=== PATIENT | female | born 1940 | race Caucasian/White ===

== ENCOUNTER 2021-06-17 10:44 | Outpatient (CLI) | payer MEDICARE, OTHER, SELFPAY ==
[2021-06-17 12:22] LABS: Absolute Lymphocyte Count 1.21 X10^3/uL (0.83-4.51); Absolute Neutrophil Count 4.5 X10^3/uL (2.0-7.7); Basophil# 0.06 X10^3/uL; Basophil% 0.9 % (0-1); Eosinophil# 0.19 X10^3/uL; Eosinophils% 2.9 % (0-5); Hematocrit 47.1 % (37-47); Lymphocyte # 1.21 X10^3/ul (0.83-4.51); Lymphocyte % 18.3 % (19-41); Mean Corp Hgb Conc 31.8 g/dL (32-36); Mean Corpuscular Hgb 28.8 pg (27.0-32.0); Mean Corpuscular Volume 90.4 fL (81-99); Mean Platelet Vol. 9.6 fl (6.2-12.0); Monocyte# 0.65 X10^3/uL; Monocyte% 9.8 % (0-10); NRBC Flagged by Analyzer 0 % (0-5); Neutrophil % 67.9 % (47-70); Platelet Count 356 K/mm3 (150-450); RBC Distribution Width CV 14.2 % (11.6-14.6); RBC Distribution Width SD 47.7 fl (35.1-43.9); Red Blood Count 5.21 M/mm3 (4.2-5.4); White Blood Count 6.6 K/mm3 (4.4-11.0)
[2021-06-17 12:52] LABS: ALB/GLOB Ratio 0.8 RATIO (0.9-2.4); AST(SGOT) 18 U/L (15-37); Alanine Aminotransfer ALT/SGPT 24 U/L (13-56); Albumin, Serum 3.5 g/dL (3.2-5.0); Alkaline Phosphatase 91 U/L (45-117); Anion Gap 4 (5-15); BUN 12 mg/dL (7-18); BUN/Creat Ratio 14.1 RATIO (10-20); Calcium,Total 9.3 mg/dL (8.5-10.1); Chloride 105 mmol/L (98-107); Creatinine, Serum 0.85 mg/dL (0.55-1.02); EST Glomerular Filtration Rate 68 mL/min (>60); Est Glom Filt Rate - Afr Amer 83 mL/min (>60); Globulin 4.4 g/dL (2.2-4.2); Glucose 104 mg/dL (74-106); Potassium 4.3 mmol/L (3.5-5.1); Protein, Total 7.9 g/dL (6.4-8.2); Sodium Level 138 mmol/L (136-145); Thyroid Stim Hormone (TSH) 6.22 uIU/mL (0.358-3.74)
[2021-06-17 15:43] LABS: T4 Free Direct 0.79 ng/dL (0.76-1.46)
== END 2021-06-17 23:59 | disposition home or self-care (01) ==
PROVIDERS: PCP Internal Medicine; Referring Provider Internal Medicine; Visit Provider Internal Medicine
DX: Z01.818 Encounter for other preprocedural examination (principal); R79.89 Other specified abnormal findings of blood chemistry; E89.0 Postprocedural hypothyroidism
CPT/HCPCS: 36415; 80053; 84439; 84443; 85025

== ENCOUNTER 2021-07-01 07:44 | Outpatient (CLI) | payer MEDICARE, OTHER, SELFPAY ==
--- NOTE | 2021-07-01 08:03 | EKG12_ITS ---
Test Reason : PRE OP Blood Pressure : / mmHG Vent. Rate : 066 BPM Atrial Rate : 066 BPM P-R Int : 140 ms QRS Dur : 080 ms QT Int : 390 ms P-R-T Axes : -66 032 056 degrees QTc Int : 408 ms Unusual P axis, possible ectopic atrial rhythm Abnormal ECG Confirmed by DMITRIY ANDERS, LESLIE ([id number]), writer editor REINALDO PACKER ([id number]) on 07/02/2021 11:40:18 AM Referred By: Caroline Coe Confirmed By:LESLIE IZAGUIRRE MD
--- NOTE | 2021-07-01 08:06 | CT_ITS ---
STUDY: CT LEFT LOWER EXTREMITY REASON FOR EXAM: Osteoarthritis, surgical planning. TECHNIQUE: Transaxial CT imaging of the lower extremity was performed. Coronal and sagittal images were reformatted. Individualized dose optimization techniques were used for this CT. COMPARISON: Radiographs 07/28/2015. FINDINGS: Knee: There is joint space narrowing and subchondral eburnation of the medial femorotibial compartment (coronal reconstruction 43). There are marginal osteophytes and joint space narrowing of the mesial aspect of the lateral femorotibial compartment (coronal reconstruction 41). There are marginal osteophytes and joint space narrowing of the lateral aspect of the patella femoral compartment (axial image 307). There is a small left knee joint effusion. Hip: There are small marginal osteophytes of the acetabulum and mild joint space narrowing of the lateral aspect of the hip (coronal reconstruction 46). Ankle: There is joint space narrowing of the tibiotalar articulation (sagittal reconstruction 26). There is mild joint space narrowing of the posterior subtalar articulation with subchondral eburnation of the calcaneus (sagittal reconstruction 29). Normal talonavicular and calcaneocuboid articulations. CT/Extremity Lower without Contra IMPRESSION: Left knee osteoarthritis. Electronically Signed: Elvin Ayala MD at 14:58 EDT ,
== END 2021-07-01 23:59 | disposition home or self-care (01) ==
LOC: CT 07:46
PROVIDERS: PCP Internal Medicine; Referring Provider Internal Medicine; Visit Provider Internal Medicine
DX: M17.12 Unilateral primary osteoarthritis, left knee (principal); M25.562 Pain in left knee; G89.29 Other chronic pain
CPT/HCPCS: 73700; 93005

== ENCOUNTER 2021-07-14 05:21 | Day surgery (SDC) | payer MEDICARE, OTHER, SELFPAY ==
[2021-07-01 09:05] LABS: Magnesium 1.9 mg/dL (1.6-2.6)
[2021-07-01 09:17] LABS: Hemoglobin A1c 5.6 % (3.8-5.6)
[2021-07-14] VITALS (10 sets, daily range): BP systolic 128–142; BP diastolic 43–89; PULSE 73–81; RESP 16; TEMP 36.2–36.7; O2SAT 91–100; BMI 31.7
[2021-07-14] MEDS: Gabapentin 600 MG Tablet PO (06:15)
[2021-07-14] MEDS: Acetaminophen 500 MG Tablet 1000 MG PO (06:15)
[2021-07-14] MEDS: Lactated Ringers 1,000 ML 15 ML IV (06:16)
[2021-07-14 07:00] LABS: Bedside Glucose 119 mg/dL (74-106)
[2021-07-14] MEDS: Lactated Ringers 1,000 ML 999 ML IV (07:00)
[2021-07-14] MEDS: Cefazolin 2 GM in 0.9% Normal Saline 100 ML IV (07:30)
--- NOTE | 2021-07-14 07:30 | KNEE_PTH ---
PATIENT: LEVON ELISE [place] [facility] [id number] AGE/SX: 81/F ROOM: RE07/14/[address]: Dr. Rusty Billingsley DO : [id number] BED: DIS: 07/14/2021 SPEC #: [id number] RECD: 07/14/21 10:47 STATUS: JULIETA REQ #: [id number] JENNYFER: 07/14/21 07:[address]: Rusty Billingsley DEPT: SURGICAL PATHOLOGY RECD BY: Zuleika Zamudio ENTERED: 07/14/21 11:40 SP TYPE: TOTAL KNEE OTHR DR: Dr. Caroline Coe MD Tissues: Knee, NOS Procedures: Decalcification bone/plaque Surgery Specimen Level IV HEADER OPERATION: ERAS, total knee replacement robotic arm assist PRE-OP DIAGNOSIS: Primary osteoarthritis TISSUE SUBMITTED: Left knee bone MICROSCOPIC DIAGNOSIS Bone and tissue of left knee, total knee resection: Severe degenerative joint disease. Mild synovial hyperplasia. AM:ezra 07/17/2021 MICROSCOPIC DESCRIPTION Slides are reviewed. GROSS DESCRIPTION Received is one container designated bone and soft tissue left knee. The specimen consists of multiple fragments of santiago-yellow bone measuring in aggregate 12 x 10 x 3 cm. Also in the specimen container are multiple fragments of yellow-white soft tissue measuring in aggregate 8 x 7 x 2 cm. A number of bony fragments contain articular surfaces consistent with tibial plateau and femoral condyle and displaying prominent osteophyte formation, eburnation, and bone erosion. Switch Repairer sections are submitted in two cassettes as follows: 1 - soft tissue, 2 - bone after decalcification. / SJ:ezra 07/14/2021 TC:5 CPT: 86279, 18528
[2021-07-14] MEDS: TXA 1000mg in NS100 100ml (IVPB at Incision) 660 MG IV (07:40)
--- NOTE | 2021-07-14 07:43 | RAD_ITS ---
STUDY: X-RAY - LEFT KNEE REASON FOR EXAM: Female, 81 years old. Postoperative evaluation after total knee arthroplasty. TECHNIQUE: 2 view(s) of the knee. COMPARISON: 05/28/2015. FINDINGS: There is a 3 component total knee arthroplasty in anatomic position. There are expected post-operative findings. There are no complications. No other significant abnormality is identified. RAD/Knee 1 or 2 Views IMPRESSION: Total knee arthroplasty in anatomic alignment without complications. Electronically Signed: Alberto Berry MD at 12:27 EDT ,
[2021-07-14] MEDS: TXA 1000mg in NS100 100ml (IVPB at Closure) 660 MG IV (09:21)
--- NOTE | 2021-07-14 09:32 | PCM.OPRPT ---
Report of Operation Date of Procedure: 07/14/21 Pre-Operative Diagnosis: OA left knee Post-Operative Diagnosis: same Surgery/Procedure Performed:: Left TKR Description of Surgical Findings:: Report of Operation Date of Procedure: 07/14/2021 Preoperative Diagnosis: [ left ] knee primary osteoarthritis Postoperative Diagnosis: [left ] knee primary osteoarthritis Operation: Robotic Assisted Knee Total Arthroplasty, [left ] knee Surgeon: Dr Rusty Billingsley DO Programs Assistant: Alberto Mcneal PA-C Anesthesia: general Anesthesiologist: Babatunde Beard M.D. Findings: Stable knee with good patella tracking Specimen(s): Bony cuts Complications: No intraoperative complications Estimated Blood Loss: 20 cc IV Fluids: 1000 cc crystalloid Implants Used: 1. Friant Triathlon size 5 cemented CR femur 2. Friant Triathlon cemented size 4 tibia 3. size 32 cemented patella 4. 10 mm CS polyethylene Brief History Operative Indications: [ (81 y\o female) ] with history of [ left ] knee osteoarthrosis with radiographic findings with loss of joint space, osteophyte formation and subchondral sclerosis. Failed conservative measures as mentioned in the H&P. Discussion of total knee arthroplasty as well as risk and benefits were discussed with the patient including but not limited to blood loss, DVTs, PEs, neurovascular damage, general risk of anesthesia including loss of life, and stiffness or instability were also discussed with the patient. Patient demonstrated understanding and was able to sign informed consent. Procedure: On the date of procedure, patient's [left ] lower extremity was marked in the preoperative area. The patient was then taken back to the operating room where that patient was placed on the table in the supine position. All bony prominences were identified and well-padded. Anesthesia assumed control of the C-spine and airway throughout the remainder of the procedure. A tourniquet was placed on the [left ] upper thigh and the leg was prepped in a sterile fashion. The surgeon then scrubbed at this time. Upon reentering the room, the [left ] lower extremity was draped in a standard orthopedic fashion. A timeout was then called and everyone agreed upon the side, the site, the procedure to be performed, patient's identity and antibiotics given. Esmarch bandage was used to exsanguinate the extremity and the tourniquet was placed up to 250 mmHg with the knee in flexion. A midline skin incision was made and a sharp dissection was taken down through skin, subcutaneous tissue and fat. The standard medial parapatellar incision was made and the patella was subluxed laterally. An appropriate deep MCL release was done and the fat pad was resected. Our attention was then directed to the patella. The patella was everted and a flat resection was made. The knee was then flexed up and 2 femoral pins were placed inside the incision and 2 tibial pins were placed outside the incision in the medial tibia bicortically. Once this was completed, the 2 checkpoints in the femur and tibia were placed. Knee was then flexed up and the bony landmarks were registered. Once the was completed, the knee taken through range of motion and manually stressed allowing us to plan for an appropriate tibial cut. The robotic arm was brought into the field sterilely and checkpoint and saw were registered. Based on the patient's deformity, the tibial cut was made in [ 2 degrees varus ]. At this time, the tensioner was then placed in the joint and ligament tension was checked at 90 degrees and full extension. Based on the patient's ligamentous tension, appropriate adjustments were made to the operative plan and ligament releases were done. Once we were happy with our operative plan with balanced flexion and extension gaps, our attention was directed to the femur. The robot was brought into the field sterilely and registered. Posterior condylar cuts, anterior chamfer cuts and anterior cuts were appropriately made for a [size 5 ] femur. When these were completed, the saws were switched out in the distal femoral and posterior chamfer cuts were made. Protecting the soft tissue throughout this time. A [ size 4 ] base plate was selected. The knee was flexed to 90 degrees and soft tissues and posterior osteophytes were removed from the joint. 40 cc of the periarticular injection was injected into the posterior medial corner of the joint. The appropriate trials were then placed on the femur and tibia. A trial polyethylene was trialed to ensure proper balancing and stability of the knee. The appropriate tibial internal rotation was then marked with a bovie. Our attention was then directed to the patella. The lug holes were drilled and the patella trial was placed. Patellar tracking was checked and deemed appropriate. Once we were happy, lug holes were drilled for the femur and trial components were removed. The tibia was subluxed and pinned into place and the keel was punched and drilled appropriately. Final components were verified and opened. The wound was copiously irrigated with normal saline and dried thoroughly. Cement was mixed under 3rd generation techniaue and applied in sequence to the tibia, the femur and the patella. The components were impacted into place with the tibia, femur and finally the patella. The trial poly component was placed and the knee was placed in full extension and held while the cement hardened. Excess cement was remove with elevators and hemostats. The tracking, alignment and balance were verified and a [10 mm CS ] polyethylene component was placed. Once the final components were placed an Irrisept lavage was performed and the wound was copiously irrigated with normal saline solution and the periarticular injection was given. the wound was closed in a layer-duron fashion using #1 vicryl interrupted sutures for the arthrotomy, 2-0 interrupted vicryl suture for the subcuticular layer and tank for final skin closure. A sterile compressive dressing was then placed. The patient was then awakened from anesthesia, transferred to [facility] and transferred to the PACU for recovery. My physician geological survey field assistant was a vital part of this case. He was important in appropriate retraction during the case, and protection of soft tissues during bony cuts. His intimate knowledge of the case and my steps aided in safe and expedient completion of the procedure as well as appropriate position of the leg during the case. He was also vital in assisting with closure under my direct supervision. Due to the complexity of this case, robotic arm was used to assist in the surgery to improve accuracy and clinical outcomes. Post-op Plan: DVT ppx; ASA 81 mg BID, thigh high compression stockings Follow up: in office in 2 weeks for wound check PT: to start POD #0 at hospital, outpatient PT should be arranged. Preoperative antibiotic: Ancef 2 grams IV Rusty Billingsley DO Surgeon: Rusty Billingsley hand deicer element winder: Alberto Mcneal Type of Anesthesia: General Anesthesiologist: Babatunde Beard Estimated Blood Loss (mL): 20 cc Fluids Replaced: 1000 cc crystalloid Admit VTE Documentation VTE Present on Admission: No VTE Mechan Device Prophylaxis: SCD's and Thigh High FAB Hose VTE Pharm Prophylaxis ordered?: Yes
[2021-07-14] MEDS: oxyCODONE 5 MG Tablet PO (12:31)
== END 2021-07-14 13:56 | disposition home or self-care (01) ==
LOC: SDC 05:21 → AC 05:22
PROVIDERS: Anesthesiology; PCP Internal Medicine; Referring Provider Orthopaedic Surgery; Visit Provider Orthopaedic Surgery
PROC: 0SRD0JZ Replacement of Left Knee Joint with Synthetic Substitute, Open Approach (ICD-10-PCS; CPT 27447; principal; 2021-07-14 07:00)
DX: M17.12 Unilateral primary osteoarthritis, left knee (principal); M06.9 Rheumatoid arthritis, unspecified; E07.9 Disorder of thyroid, unspecified; I10 Essential (primary) hypertension; Z79.82 Long term (current) use of aspirin; Z79.899 Other long term (current) drug therapy
CPT/HCPCS: 27447; S2900; 01402; 64447; 36415; 73560; 82962; 83036; 83735; 87081; 87426; 88305; 88311; 97162; C1776; C9803; J7120; J2405

== ENCOUNTER 2021-09-18 10:00 | Outpatient (RCR) | payer MEDICARE, OTHER, SELFPAY ==
--- NOTE | 2021-08-14 13:39 | HP.PTEVAL ---
Patient's Visit Information LEVON ELISE is a 81 year old F referred to Physical Therapy by Alberto Mcneal PA-C with a diagnosis of L TKA. Date of Evaluation: 08/14/21 Physical Therapist: Lorenzo Cantu, PT, ATC - Visit Plan Frequency: 2-3x /Week Duration: 4-6 Weeks Plan: L knee stretching and strengthening, balance and proprio, core strengthening, nustep, and HEP - Subjective DOS: 07/14/21. Pt had a L TKA performed at that time. Pt reports she had a lot of pain for many years. Pt reports she has had home PT for the past few weeks and has really been progressing well. Pt notes she is really glad she had the surgery at this time. Pt notes she has no sleep difficulty with pain meds. Pt notes she has a lot of stairs at home which she is able to negotiate one step at a time. Pt is currently retired. Pt reports she sprained her R ankle about 2 weeks ago. No tingling or numbness in L LE. Pt reports she used a walker for about one week, but has transitioned to a quad cane at this time, and has been using nothing to ambulate while in the home. Pt reports she likes to go on walks and gardening which she hopes to get back to doing soon. 2/10 pain at rest, 6/10 pain at worst. - Pain L TKA Pain Intensity (Out of 10): 2 Pain Intensity Range: 6 - Objective Neuro: B LE sensation is WNL to light touch. Girth at joint line: R knee 40 cm, L knee 44 cm. ROM: L knee 0-15-97; R knee 0-130. MMT: R knee flex= 23, ext= 27; L knee flex= 22, ext= 26 #F. TU seconds - Balance/Special Test Scores Lower Extremity Functional Score: 44 - Goals Goal 1:: Decrease L knee pain x 50% to aid with sleep Goal Time Frame: 4-6 Weeks Goal 2:: Increase L knee ROM x 20 degrees to aid with restoring pt's ability to perform IADL's Goal Time Frame: 4-6 Weeks Goal 3:: Decrease TUG score x 2-3 seconds to aid with safe ambulation Goal Time Frame: 4-6 Weeks Goal 4:: I with HEP Goal Time Frame: 4-6 Weeks - Rehabilitation Potential Physical Therapy Diagnosis: L knee pain, swelling, and lack of ROM secondary to L TKA Rehabilitation Potential: Good - Anticipated Interventions Patient/Client Instruction: Educate patient on: Condition, Plan of Care For the Purpose of:: To improve self management Therapeutic Exercise to Include: Strength training, Endurance training, Balance training, Gait and locomotor training, Passive ROM, Active ROM, Dynamic Lumbar Stabilization For the Purpose of:: To improve self management Cryotherapy (ice pack, ice massage): Yes For the Purpose of:: To decrease pain Thank you for the opportunity to evaluate your patient. For Medicare and Medicare HMO plans, please review the plan of care and approve it. It will need to be FAXED BACK to us at [phone] for Medicare purposes. For Medicare only, by signing this I certify the plan of care. Please let me know if there are questions or concerns regarding this plan of care. Physician Signature: Date:
--- NOTE | 2021-09-18 10:29 | HP.PTDCSUM ---
It has been my pleasure to treat LEVON ELISE referred by Alberto Mcneal PA-C, with the diagnosis of L TKA for a total of 8 visit(s). Discharge Date: Please see the following information for a summary of their discharge status. Subjective: Pt reports she is ready for discharge today L TKA Pain Intensity (Out of 10): 0 % Improvement: 95 Objective/Function: R knee pain ranges from 0-4/10. R knee ROM: 0-4-123. R knee MMT: flex= 23, ext= 26 #F. Tug': 7.25. Pt is I with HEP. Rx goals achieved Goal 1:: Decrease L knee pain x 50% to aid with sleep Goal Progress: Goal Met Goal 2:: Increase L knee ROM x 20 degrees to aid with restoring pt's ability to perform IADL's Goal Progress: Goal Met Goal 3:: Decrease TUG score x 2-3 seconds to aid with safe ambulation Goal Progress: Goal Met Goal 4:: I with HEP Goal Progress: Goal Met Plan: Discharge If there are questions or concerns regarding this patient's physical therapy, please feel free to call me at [phone]. Thank you for the referral of this patient. Sincerely, Lorenzo Cantu, PT, ATC Balance/Gait/Functional tests - Balance/Special Test Scores Lower Extremity Functional Score: 65
== END 2021-09-18 10:35 | disposition home or self-care (01) ==
LOC: PT 10:00
PROVIDERS: PCP Internal Medicine; Referring Provider Physician Assistant; Visit Provider Physician Assistant
DX: Z96.652 Presence of left artificial knee joint (principal)
CPT/HCPCS: 97110; 97140; 97161; 97164

== ENCOUNTER → 2021-12-02 | Outpatient (CLI) | payer MEDICARE, OTHER, SELFPAY ==
[2021-12-02 12:18] LABS: Absolute Lymphocyte Count 1.54 X10^3/uL (0.83-4.51); Absolute Neutrophil Count 5.6 X10^3/uL (2.0-7.7); Basophil# 0.08 X10^3/uL; Eosinophil# 0.14 X10^3/uL; Eosinophils% 1.7 % (0-5); Hematocrit 44.6 % (37-47); Hemoglobin 14.6 g/dL (12.0-15.0); Lymphocyte # 1.54 X10^3/ul (0.83-4.51); Lymphocyte % 19.1 % (19-41); Mean Corp Hgb Conc 32.7 g/dL (32-36); Mean Corpuscular Hgb 29.7 pg (27.0-32.0); Mean Corpuscular Volume 90.7 fL (81-99); Mean Platelet Vol. 9.1 fl (6.2-12.0); Monocyte# 0.73 X10^3/uL; Monocyte% 9.1 % (0-10); NRBC Flagged by Analyzer 0 % (0-5); Neutrophil # 5.55 X10^3/uL (2.7-7.7); Neutrophil % 68.9 % (47-70); Platelet Count 355 K/mm3 (150-450); RBC Distribution Width CV 14.4 % (11.6-14.6); RBC Distribution Width SD 48.7 fl (35.1-43.9); Red Blood Count 4.92 M/mm3 (4.2-5.4); White Blood Count 8.1 K/mm3 (4.4-11.0)
[2021-12-02 12:47] LABS: ALB/GLOB Ratio 0.8 RATIO (0.9-2.4); AST(SGOT) 14 U/L (15-37); Alanine Aminotransfer ALT/SGPT 19 U/L (13-56); Albumin, Serum 3.5 g/dL (3.2-5.0); Alkaline Phosphatase 86 U/L (45-117); Anion Gap 7 (5-15); BUN 12 mg/dL (7-18); BUN/Creat Ratio 17.5 RATIO (10-20); Calcium,Total 9.4 mg/dL (8.5-10.1); Chloride 107 mmol/L (98-107); Cholesterol 245 mg/dL (200); Creatinine, Serum 0.69 mg/dL (0.55-1.02); EST Glomerular Filtration Rate 88 mL/min (>60); Est Glom Filt Rate - Afr Amer 106 mL/min (>60); Globulin 4.3 g/dL (2.2-4.2); Glucose 86 mg/dL (74-106); High Density Lipoprotein 50 mg/dL; Protein, Total 7.8 g/dL (6.4-8.2); Sodium Level 140 mmol/L (136-145); Thyroid Stim Hormone (TSH) 5.65 uIU/mL (0.358-3.74); Triglycerides 227 mg/dL; Very Low Density Lipoprotein 45 mg/dL (5-40)
[2021-12-03 08:31] LABS: Thyroid Peroxidase AB < 8 IU/mL (0-34)
== END | disposition home or self-care (01) ==
LOC: BIMLAB 11:09
PROVIDERS: PCP Internal Medicine; Referring Provider Internal Medicine; Visit Provider Internal Medicine
DX: I10 Essential (primary) hypertension (principal); E03.8 Other specified hypothyroidism; R79.89 Other specified abnormal findings of blood chemistry
CPT/HCPCS: 36415; 80053; 80061; 84439; 84443; 85025; 86376

== ENCOUNTER → 2022-12-02 | Outpatient (CLI) | payer MEDICARE, OTHER, SELFPAY ==
[2022-12-02 12:25] LABS: Absolute Lymphocyte Count 1.18 X10^3/uL (0.83-4.51); Absolute Neutrophil Count 5.2 X10^3/uL (2.0-7.7); Basophil# 0.07 X10^3/uL; Eosinophils% 2.8 % (0-5); Hematocrit 45.1 % (37-47); Hemoglobin 14.7 g/dL (12.0-15.0); Lymphocyte # 1.18 X10^3/ul (0.83-4.51); Lymphocyte % 16.4 % (19-41); Mean Corp Hgb Conc 32.6 g/dL (32-36); Mean Corpuscular Hgb 29.3 pg (27.0-32.0); Mean Platelet Vol. 9.5 fl (6.2-12.0); Monocyte# 0.53 X10^3/uL; Monocyte% 7.4 % (0-10); NRBC Flagged by Analyzer 0 % (0-5); Neutrophil # 5.22 X10^3/uL (2.7-7.7); Neutrophil % 72.3 % (47-70); Platelet Count 292 K/mm3 (150-450); RBC Distribution Width SD 46.3 fl (35.1-43.9); Red Blood Count 5.01 M/mm3 (4.2-5.4); White Blood Count 7.2 K/mm3 (4.4-11.0)
[2022-12-02 13:02] LABS: ALB/GLOB Ratio 0.8 RATIO (0.9-2.4); AST(SGOT) 15 U/L (15-37); Alanine Aminotransfer ALT/SGPT 17 U/L (13-56); Albumin, Serum 3.3 g/dL (3.2-5.0); Alkaline Phosphatase 74 U/L (45-117); Anion Gap 7 (5-15); BUN 9 mg/dL (7-18); BUN/Creat Ratio 10.9 RATIO (10-20); Calcium,Total 8.6 mg/dL (8.5-10.1); Chloride 107 mmol/L (98-107); Cholesterol 256 mg/dL (200); Creatinine, Serum 0.83 mg/dL (0.55-1.02); EST Glomerular Filtration Rate 70 mL/min (>60); Est Glom Filt Rate - Afr Amer 85 mL/min (>60); Glucose 108 mg/dL (74-106); High Density Lipoprotein 51 mg/dL; Potassium 3.8 mmol/L (3.5-5.1); Protein, Total 7.3 g/dL (6.4-8.2); Sodium Level 139 mmol/L (136-145); T4 Free Direct 0.77 ng/dL (0.76-1.46); Thyroid Stim Hormone (TSH) 6.69 uIU/mL (0.358-3.74); Triglycerides 173 mg/dL; Very Low Density Lipoprotein 35 mg/dL (5-40)
== END | disposition home or self-care (01) ==
LOC: BIMLAB 10:17
PROVIDERS: PCP Internal Medicine; Visit Provider Internal Medicine
DX: I10 Essential (primary) hypertension (principal); E03.9 Hypothyroidism, unspecified
CPT/HCPCS: 36415; 80053; 80061; 84439; 84443; 85025

== ENCOUNTER → 2023-11-12 | Outpatient (CLI) | payer MEDICARE, OTHER, SELFPAY ==
--- NOTE | 2023-11-12 07:56 | CT_ITS ---
STUDY: CT RIGHTLOWER EXTREMITY WITHOUT CONTRAST REASON FOR EXAM: Female, 83 years old. KNEE PAIN RADIATION DOSAGE (If Supplied By Facility): CTDIvol = ( 18.76 ) mGy, DLP = ( 1149.41 ) mGycm TECHNIQUE: Thin section transaxial imaging of the ankle was obtained, with sagittal and coronal reconstructed images. Individualized dose optimization techniques were used for this CT. COMPARISON: X-ray of the right knee dated May 28, 2015 Hip findings: No visualized right intrapelvic regions: Significant rectosigmoid diverticulosis is present. Mild right hip axial narrowing. Normal femoral head and neck. Mild cortical spurring is present at the periphery of the right acetabular roof. No visualized fracture or loose bodies. No avascular necrosis is present. Normal visualized superior and inferior pubic rami and ischial tuberosities. Normal visualized soft tissue structures of the pelvis. Knee findings: There is severe narrowing of the medial compartment with [id number] contact and reactive sclerosis and subchondral cystic changes on both sides of the joint space. The lateral compartment is moderately narrowed. The patellofemoral compartment space is also moderately narrowed with a small suprapatellar joint effusion. Normal proximal tibiofibular articulation. The quadriceps tendon is grossly normal. The patellar tendon is grossly normal. Normal Hoffa''s fat pad. The soft tissues are unremarkable. Ankle findings: Normal visualized distal tibia and fibula. Normal tibiotalar articulation and talar dome. Normal talus, calcaneus, navicular and cuboid tarsal bones. Normal subtalar, talonavicular and calcaneocuboid articulations. Normal navicular-cuneiform, cuneiform tarsal bones and intercuneiform articulations. Normal tarsometatarsal articulations and visualized metatarsi. The soft tissue structures are grossly normal. CT/Extremity Lower without Contra IMPRESSION: 1. Severe medial compartment of the knee narrowing Electronically Signed: Michele Robins MD at 13:12 EDT ,
== END | disposition home or self-care (01) ==
LOC: CT 07:40
PROVIDERS: PCP Internal Medicine; Referring Provider Student in an Organized Health Care Education/Training Program; Visit Provider Student in an Organized Health Care Education/Training Program
DX: M17.31 Unilateral post-traumatic osteoarthritis, right knee (principal); M25.561 Pain in right knee
CPT/HCPCS: 73700

== ENCOUNTER → 2023-11-17 | Outpatient (CLI) | payer MEDICARE, OTHER, SELFPAY ==
[2023-11-17 18:30] LABS: Cholesterol 241 mg/dL (200); High Density Lipoprotein 52 mg/dL; T4 Free Direct 0.74 ng/dL (0.76-1.46); Triglycerides 187 mg/dL; Very Low Density Lipoprotein 37 mg/dL (5-40)
== END | disposition home or self-care (01) ==
LOC: BIMLAB 15:59
PROVIDERS: PCP Internal Medicine; Referring Provider Internal Medicine; Visit Provider Internal Medicine
DX: E03.8 Other specified hypothyroidism (principal)
CPT/HCPCS: 36415; 80061; 84439; 84443

== ENCOUNTER 2023-12-06 05:34 | Day surgery (SDC) | payer MEDICARE, OTHER, SELFPAY ==
--- NOTE | 2023-11-12 07:53 | EKG12_ITS ---
Test Reason : PRE OP Blood Pressure : / mmHG Vent. Rate : 072 BPM Atrial Rate : 072 BPM P-R Int : 176 ms QRS Dur : 078 ms QT Int : 380 ms P-R-T Axes : 000 -03 055 degrees QTc Int : 416 ms Sinus rhythm with Premature atrial complexes Otherwise normal ECG Confirmed by Rusty Charlton ([id number]), editorial project manager REINALDO PACKER ([id number]) on 11/15/2023 10:01:46 AM Referred By: German Marcelo Confirmed By:Rusty Charlton
[2023-11-12 08:12] LABS: Absolute Neutrophil Count 6.5 X10^3/uL (2.0-7.7); Basophil% 1.1 % (0-1); Eosinophil# 0.22 X10^3/uL; Eosinophils% 2.3 % (0-5); Hematocrit 46.8 % (37-47); Hemoglobin 15.2 g/dL (12.0-15.0); Lymphocyte % 21.1 % (19-41); Mean Corp Hgb Conc 32.5 g/dL (32-36); Mean Corpuscular Hgb 29.4 pg (27.0-32.0); Mean Corpuscular Volume 90.5 fL (81-99); Mean Platelet Vol. 9.1 fl (6.2-12.0); Monocyte# 0.66 X10^3/uL; NRBC Flagged by Analyzer 0 % (0-5); Neutrophil # 6.45 X10^3/uL (2.7-7.7); Neutrophil % 68.2 % (47-70); Platelet Count 308 K/mm3 (150-450); RBC Distribution Width CV 13.8 % (11.6-14.6); RBC Distribution Width SD 46.1 fl (35.1-43.9); Red Blood Count 5.17 M/mm3 (4.2-5.4); White Blood Count 9.5 K/mm3 (4.4-11.0)
[2023-11-12 08:52] LABS: Anion Gap 6 (5-15); BUN 10 mg/dL (7-18); BUN/Creat Ratio 12.2 RATIO (10-20); Chloride 107 mmol/L (98-107); Creatinine, Serum 0.82 mg/dL (0.55-1.02); EST Glomerular Filtration Rate 71 mL/min (>60); Est Glom Filt Rate - Afr Amer 86 mL/min (>60); Glucose 108 mg/dL (74-106); Potassium 3.5 mmol/L (3.5-5.1); Sodium Level 139 mmol/L (136-145)
[2023-11-12 08:55] LABS: Magnesium 2.3 mg/dL (1.6-2.6)
[2023-12-06] VITALS (10 sets, daily range): BP systolic 111–148; BP diastolic 41–78; PULSE 53–87; RESP 16–18; TEMP 36.1–36.3; O2SAT 92–100; BMI 30.9
[2023-12-06] MEDS: Magnesium 1 GM over 15 mins IV (06:13)
[2023-12-06] MEDS: Lactated Ringers 1,000 ML 999 ML IV ×2 (06:13→09:37)
[2023-12-06] MEDS: Gabapentin 600 MG Tablet PO (06:29)
[2023-12-06] MEDS: Acetaminophen 500 MG Tablet 1000 MG PO (06:29)
--- NOTE | 2023-12-06 06:36 | PRE.ANES_ITS ---
ASA Classification* ASA Classification ASA Classification: 2 Assessment & Plan Anesthesia* Anesthesia Assessment Anesthesia Assessment: Discussed sedation and/or anesthesia options, risks, benefits, and alternatives with patient/parents/legal guardian/POA. Questions invited. The patient/parents/legal guardian/POA seems to understand and agrees to proceed with anesthesia plan. Reviewed the physical assessment, medical history, allergy history and patient home medications list prior to surgery/procedure/anesthetic and documented any changes. Performed airway and anesthesia risk assessments. Anesthesia Type Anesthesia Type: Spinal (Block consented) Anesthesia Focused Assessment* Temperature: 96.9 F Pulse Rate: 71 Blood Pressure: 120/71 Respiratory Rate: 18 Pulse Ox: 97 Airway Assessment Mouth opens: >3 cm Mallampati Score: II Focused Labs Anesthesia Preop lab: CBC WBC 9.5 K/mm3 (4.4-11.0) 11/12/23 07:42 RBC 5.17 M/mm3 (4.2-5.4) 11/12/23 07:42 Hgb 15.2 g/dL (12.0-15.0) H 11/12/23 07:42 Hct 46.8 % (37-47) 11/12/23 07:42 Plt Count 308 K/mm3 (150-450) 11/12/23 07:42 CHEMISTRY Potassium 3.5 mmol/L (3.5-5.1) 11/12/23 07:42 Sodium 139 mmol/L (136-145) 11/12/23 07:42 Magnesium 2.3 mg/dL (1.6-2.6) 11/12/23 07:42 BUN 10 mg/dL (7-18) 11/12/23 07:42 Creatinine 0.82 mg/dL (0.55-1.02) 11/12/23 07:42 Glucose 108 mg/dL (74-106) H 11/12/23 07:42 POC Glucose 119 mg/dL (74-106) H 07/14/21 05:59 TSH 5.030 uIU/mL (0.358-3.740) H 11/17/23 15:59 COAG PT 12.0 SECONDS (11.9-14.4) 04/05/13 19:39 Pre-Assessment Diagnosis/Proposed Procedure Planned Operative Procedure(s): ERAS ROBOTIC ASSISTED RIGHT TOTAL KNEE ARTHROPLASTY Anesthesia History Anesthesia History - security guard supervisor: Anesthesia History - security guard supervisor Hx Hospitalization No 11/08/23 10:18 Any Problems With Anesthesia No 11/08/23 10:18 Cholinesterase deficiency No 11/08/23 10:18 You/Your Family Experience No 11/08/23 10:18 fever (hyperthermia) with Relationship Recent Exposure to Contagious No 12/06/23 06:18 Disease Does patient have nerve No 11/08/23 10:18 stimulator Patient instructed to have device shut off --Does patient have Pacemaker No 12/06/23 06:18 or ICD? When Was Last Pacemaker Check QUESTION #4 FULL TEXT: You/Your Family Experience fever (hyperthermia) with Anesthesia Last Oral Intake Last Oral intake: Last Oral Intake NPO since 21:00 12/06/23 06:18 Meds taken in AM with sips of Yes 12/06/23 06:18 water? Meds patient instructed to omeprazole 12/06/23 06:18 take am of surgery PONV PONV - security guard supervisor: PONV - security guard supervisor Female Yes 11/08/23 10:18 HX of Motion Sickness No 11/08/23 10:18 HX of N/V After Surgery No 11/08/23 10:18 Non-Smoker Yes 11/08/23 10:18 Duration of Surgery greater Yes 11/08/23 10:18 than 60 minutes Number of Risk Factors 3 11/08/23 10:18 PONV Score Moderate Risk 11/08/23 10:18 Height & Weight Height & Weight: Anesthesia: Height & Weight Height 5 ft 8 in 12/06/23 06:18 Weight: 92.3 kg 12/06/23 06:18 Body Mass Index (BMI) 30.9 12/06/23 06:18 Respiratory Assessment Respiratory Assessment - security guard supervisor: Respiratory Tract Infection Hx - security guard supervisor Hx Respiratory Tract Infection No 11/08/23 10:18 STOP Sleep Apnea STOP Sleep Apnea - security guard supervisor: STOP Sleep Apnea - security guard supervisor Hx Hypertension No 11/08/23 10:18 Hx Sleep Apnea No 11/08/23 10:18 CPAP No 11/08/23 10:18 BIPAP No 11/08/23 10:18 Do you snore loudly (louder Yes 11/08/23 10:18 than talking or can be heard Do you often feel tired/ No 11/08/23 10:18 fatigued/ sleepy during daytime? Has anyone observed you stop No 11/08/23 10:18 breathing during sleep? STOP Results Negative 11/08/23 10:18 QUESTION #5 FULL TEXT : Do you snore loudly (louder than talking or can be heard through closed doors)? Tobacco Use History Tobacco Use History - security guard supervisor: Tobacco Use History - security guard supervisor Tobacco Use Smoking Status Never smoker 11/08/23 10:18 Hx Tobacco Use No 11/08/23 10:18 Years Smoking Packs Smoked per Day Smoking Cessation Date was within the last 15 years Hx Smoking Cessation Date Hx Smoking Cessation Counseling Hematologic Medial History Hematologic Hx - security guard supervisor: Hematologic Medical Hx - rn documentation specialist Hx of Blood Transfusion No 11/08/23 10:18 Hx of Transfusion in last 3 No 11/08/23 10:18 Months Date of Last Transfusion (if within last 3 months) Ever experience any problems No 11/08/23 10:18 with transfusion(s)? Specify any problems Hx of Preganancy in last 3 No 11/08/23 10:18 Months Nurse Filling Out Transfusion DSCHRIBER 11/08/23 10:18 & Questions: Date: 11/08/23 11/08/23 10:18 Time: 10:19 11/08/23 10:18 Patient unable to answer at this time (ie. confused, unrespo /Reproduction History /Reproductive History - security guard supervisor: /Reproductive Hx- security guard supervisor Hx Now No 11/08/23 10:18 Gestational Age (in weeks): EDC: Hx Hx Para Hx Section SAB No 11/08/23 10:18 Active Medications Active Medications: Current Medications Generic Name Dose Route Start Last Admin Trade Name Freq PRN Reason Stop Dose Admin Acetaminophen 1,000 mg 12/06/23 07:30 12/06/23 06:29 Acetaminophen 500 Mg Tablet PO 12/06/23 07:31 1,000 mg X1 ONE Administration Sodium Chloride 77.4 ml/ 0 ml 12/06/23 07:30 Ropivacaine 200 mg/ OPERA.SITE 12/06/23 07:31 Epinephrine HCl 0.6 mg/ X1 ONE Ketorolac Tromethamine 30 mg/ Morphine Sulfate 5 mg Dexamethasone Sodium Phosphate 10 mg 12/06/23 07:30 Dexamethasone 10 Mg/Ml Vial IV 12/06/23 07:31 X1 ONE Gabapentin 600 mg 12/06/23 07:30 12/06/23 06:29 Gabapentin 600 Mg Tablet PO 12/06/23 07:31 600 mg X1 ONE Administration Lactated Ringer's 1,000 mls @ 999 mls/hr 12/06/23 07:30 12/06/23 06:13 IV 12/06/23 08:30 999 mls/hr .Q1H1M JEN Administration Cefazolin Sodium 2 gm/ Sodium 110 mls @ 150 mls/hr 12/06/23 07:30 Chloride IV 12/06/23 08:13 PREOP ONE Tranexamic Acid 1,000 mg/ 110 mls @ 660 mls/hr 12/06/23 07:30 Sodium Chloride IV 12/06/23 07:39 X1 ONE Tranexamic Acid 1,000 mg/ 110 mls @ 660 mls/hr 12/06/23 07:30 Sodium Chloride IV 12/06/23 07:39 X1 ONE Lactated Ringer's 1,000 mls @ 999 mls/hr 12/06/23 07:30 IV 12/06/23 08:30 .Q1H1M JEN Lactated Ringer's 1,000 mls @ 125 mls/hr 12/06/23 07:30 IV 12/06/23 15:29 .Q8H JEN Lactated Ringer's 1,000 mls @ 75 mls/hr 12/06/23 07:30 IV 12/06/23 20:49 .[id number] JEN Magnesium Sulfate 1 gm/ 102 mls @ 408 mls/hr 12/06/23 07:30 12/06/23 06:29 Dextrose IV 12/06/23 07:44 Infused X1 ONE Infusion Insulin Human Lispro 1 - 6 unit 12/06/23 07:30 Insulin Lispro 100 Unit/Ml Insuln.Pen SC 12/06/23 18:00 Q4H PRN PRN BG>/= 180, SEE PROTOCOL Protocol Sodium Chloride 5 - 15 ml 12/06/23 07:30 0.9% Nacl Peripheral Flush Adult/Peds IV UD PRN SALINE FLUSH PFSH Medical History Hyperlipidemia Shortness of breath on exertion History of edema Right knee pain URI (upper respiratory infection) GERD (gastroesophageal reflux disease) Hypothyroidism Post-menopausal Subclinical hypothyroidism Wears glasses Restless legs Migraine headache Non-smoker Leg cramps History of echocardiogram History of stress test Elevated TSH Preoperative evaluation to rule out surgical contraindication Health care maintenance Hypertension Rheumatoid arthritis Osteoarthritis Arthritis Seasonal allergies History of breast lump Home Medications ?Medication ?Instructions ?Recorded ?Last Taken ?Type hwbiwwj-olouchbhdlxty-reggwlsh 250 1 tab PO PRN PRN MIGRAINES 12/06/20 12/05/23 History mg-250 mg-65 mg tablet (Excedrin Extra Strength) acetaminophen 325 mg tablet 650 mg PO Q4H PRN Pain 06/30/21 Unknown History (Tylenol) fluticasone propionate 50 1 spray intranasal BID PRN 06/30/21 Unknown History mcg/actuation nasal ALLERGIES spray,suspension (Flonase Allergy Relief) estradiol 0.5 mg tablet 0.5 mg PO DAILY #90 tabs 05/26/23 12/05/23 Rx cetirizine 10 mg capsule (Zyrtec) 10 mg PO DAILY #90 caps 09/17/23 12/05/23 Rx omeprazole 40 mg capsule,delayed 40 mg PO DAILY PRN PRN GERD 11/08/23 12/06/23 History release levothyroxine 25 mcg tablet 25 mcg PO DAILY #60 tabs 11/18/23 Unknown Rx Allergy/AdvReac Type Severity Reaction Status Date / Time bee venom protein (honey bee) Allergy Unknown swelling Verified 12/06/23 06:12 codeine AdvReac Vomiting Verified 12/06/23 06:12 meperidine HCl (From Demerol) AdvReac Vomiting Verified 12/06/23 06:12 morphine AdvReac Vomiting Verified 12/06/23 06:12 Sulfa (Sulfonamide AdvReac Hives Verified 12/06/23 06:12 Antibiotics) Family History Father Colon cancer Myocardial infarction Mother Heart disease CVA (cerebral vascular accident) Thyroid disorder Brother Seizures Grandmother Diabetes Other Arthritis Surgical History History of eyelid surgery H/O total knee replacement Hx of myringotomy History of bilateral cataract extraction History of partial thyroidectomy History of hysterectomy History of cholecystectomy Social History Smoking Status: Never smoker alcohol intake: never substance use type: does not use what type of physical activity do you participate in: none Review of Systems (Anesthesia) ROS Narrative System reviewed and no additional complaints, except as documented.
[2023-12-06 07:09] LABS: Bedside Glucose 111 mg/dL (74-106)
[2023-12-06] MEDS: Cefazolin 2 GM in 0.9% Normal Saline (100mL Bag) 100 ML IV (07:30)
--- NOTE | 2023-12-06 07:30 | KNEE_PTH ---
PATIENT: LEVON ELISE LOC: [facility] [place] U#:[id number] AGE/SX: 83/F ROOM: RE12/06/[address]: Dr. German Marcelo DO : 1940 BED: DIS: 12/06/2023 SPEC #: [id number] RECD: 12/06/23 12:27 STATUS: JULIETA REAlexus #: [id number] JENNYFER: 12/06/23 07:[address]: German Marcelo DEPT: SURGICAL PATHOLOGY RECD BY: Jacqui Howard ENTERED: 12/06/23 13:21 SP TYPE: TOTAL KNEE OTHR DR: Dr. Caroline Coe MD Tissues: Knee, NOS Procedures: Decalcification bone/plaque Surgery Specimen Level IV HEADER OPERATION: Robotic assisted right total knee arthroplasty PRE-OP DIAGNOSIS: Osteoarthritis right knee TISSUE SUBMITTED: Bone and tissue right knee MICROSCOPIC DIAGNOSIS Bone and soft tissue, right knee, total knee replacement/resection: Pieces of bone with degenerative osteoarthritic changes. SJ: 12/09/2023 MICROSCOPIC DESCRIPTION Slides are reviewed. GROSS DESCRIPTION Received is one container designated bone and soft tissue right knee. The specimen consists of multiple fragments of bone measuring in aggregate 11.0 x 10.0 x 3.0cm. No soft tissue is identified. A number of bony fragments contain articular surfaces consistent with tibial plateau and femoral condyle and displaying prominent osteophyte formation, eburnation and bone erosion. Supplier Relationship Director sections are submitted in one cassette after decalcification. / NII. 12/06/2023 TC:5 CPT: 61321, 37835
[2023-12-06] MEDS: TXA 1000mg in NS100 100ml (IVPB at Incision) 660 MG IV (07:38)
[2023-12-06] MEDS: JPS (Morphine 10mg/ml) OPERA.SITE (08:35)
[2023-12-06] MEDS: TXA 1000mg in NS100 100ml (IVPB at Closure) 660 MG IV (08:53)
--- NOTE | 2023-12-06 09:18 | PCM.POST.ANE ---
Anesthesia: Postop Eval I Current Vital Signs Temperature: 97.4 F Pulse Rate: 68 Blood Pressure: 111/78 Respiratory Rate: 16 Pulse Ox: 96 Oxygen Delivery Method: Nasal Cannula Oxygen Flow Rate (L/min): 4 Assessment Airway patent: Yes Spontaneous unlabored respirations: Yes Mental status: Awake and Calm nausea: No Vomiting: No Anesthesia Complication: No Fluid Hydration Crystalloid volume administer (ml): 1,000 Total IV fluid infused: 1,000 Progress Note Anesthesia document: Postop Eval 1 completed: Yes
--- NOTE | 2023-12-06 09:41 | PCM.OPRPT ---
Report of Operation Date of Procedure: 12/06/23 Description of Surgical Findings:: Preoperative diagnosis: Right knee primary osteoarthritis Postoperative diagnosis: Right knee primary osteoarthritis Procedure: Right total knee arthroplasty with robotic arm assistance Surgeon: German Marcelo DO Boat Hop: Mirta Barrientos PA-C Anesthesia: Spinal with sedation, adductor canal block Anesthesiologist: Dr. Morley Complications: None apparent Drains: None Estimated blood loss: 50 cc Urinary output: None recorded IV fluids: 1000 cc crystalloid Specimens: Total knee resections Surgical implants: [place] triathlon X3 asymmetric patella size a32, triathlon cruciate retaining femoral #5, primary tibial baseplate #4, triathlon X3 tibial bearing insert CS 11 mm Indications: This is a 83-year-old female seen in the outpatient setting diagnosed with right knee osteoarthritis with significant varus deformity. She failed nonoperative management with intra-articular corticosteroid injections, activity modification, bracing, [id number] analgesics. X-rays revealed grade 4 medial compartment changes. She also had significant patellofemoral arthritis. I recommended a right total knee arthroplasty. The risk, benefits, alternatives to procedure reviewed with patient at length and he agreed to proceed. Risks included but were not limited to bleeding, infection, loss of life or limb, need for additional surgery, persistent pain, intraoperative or postoperative fracture, instability, loosening of components, wound complications, stiffness, neurovascular injury, DVT or PE. Patient expressed understanding these risks and wished to proceed with surgery. Informed consent was obtained in the outpatient setting. Patient was adamant regarding same-day discharge as she was successful with outpatient left total knee arthroplasty with Dr. Rusty Billingsley on 07/14/2021. I was amenable to this plan. Description of procedure: Patient was identified in the preoperative holding area by name, medical record number, and date of . Informed set was confirmed with the patient. The operative knee was marked with a surgical marker. At time of her procedure, patient brought to the operative suite and positioned supine a standard operating table. Anesthesia then administered a spinal anesthetic. She was then repositioned in the supine position with all bony prominences well-padded. We then placed a well-padded pneumatic tourniquet on the right upper thigh. The right upper extremity was brought across patient's chest throughout the procedure. We then prepped and draped the right lower extremity in a normal, sterile orthopedic fashion. We performed a timeout with all parties in attendance in agreement with the side, site, operation be performed. No concerns were voiced and would like to proceed with surgery. 2 g Ancef was administered prior to the incision by anesthesia staff as well as 1 g IV TXA. First exsanguinated the right lower extremity with a Esmarch bandage. Tourniquet was inflated to 250 mmHg, which remained elevated for 1 hour. Esmarch was removed. I planned a standard midline approach to the right knee approximately 15 cm in length. Skin was sharply incised with a 10 blade scalpel developing full-thickness layers down to the retinaculum. Layers were developed identifying the VMO. I then planned a standard medial parapatellar arthrotomy performed in flexion. The anterior horn of the medial meniscus was released. Hoffa's fat pad was then released. I then everted the patella in extension and brought the knee into 90 degrees of flexion. The anterior horn of the lateral meniscus was then released. The ACL was split in its mid substance with a 10 blade. We then brought the knee back into extension. I measured the outer diameter of the patella to be approximately 46 mm, a patellar reamer was then selected. I measured the thickness of the patella to be 26 mm. I then reamed the patella to a depth of approximately 15 mm. A protective baseplate was then placed on the patella. I then placed pins in the metaphyseal distal femur medial to lateral for the Kofi arrays. In similar fashion, I made a 2 cm incision approximately a handsbreadth distal to the tibial tubercle along the medial aspect of the tibia, drilling 2 bicortical pins for the tibial array. The knee was brought into flexion. The patella was subluxed laterally but not everted. Medial lateral retractors were placed. We then utilized the STYLIGHT software to confirm our planned surgical procedure and oriented with the patient's osseous anatomy. All checks with the STYLIGHT system were confirmed. Patient had a significant fixed varus deformity after performing stress examination utilizing the Kofi software. We elected to place the tibial baseplate in 1.5 degrees of varus to allow for appropriate balancing. Sawblade was then brought in. I first started with the tibial cut, ensuring protection of the MCL and patellar tendon. A tibial wafer was then excised. I then proceeded to make the posterior femoral, anterior, anterior chamfer cuts with the same blade. Ligaments were protected with Intermedics retractors. Sawblade was then exchanged to perform the distal femoral and posterior chamfer cuts. The robot was then removed from the surgical field. Remaining loose bone and meniscus was excised carefully. Posterior osteophytes were removed from the distal femur with a curved osteotome and rongeur. Trial components were then placed. Balance was excellent in both extension and 90 degrees flexion with a an 11 mm polyethylene trial. No mid flexion instability was apparent. I then drilled for a size 32 patella. Patella was trialed. Tracking was excellent. We then marked for tibial baseplate. Distal femoral pegs were drilled. Tibial keel was punched. Trials were removed. Periarticular block was administered. The wound was copiously irrigated with normal saline solution. Simplex cement was then mixed on the back table. Components were then cemented in place with excess cement being removed. Cement was allowed to cure with the components in full extension utilizing a 11 mm trial polyethylene component. While the cement was curing, Betadine solution was irrigated into the wound and the wound edges. After cement had cured fully, trial polyethylene was removed. Tourniquet was deflated. Hemostasis was excellent. An additional 1 g TXA was administered IV. I selected a size 11 mm polyethylene which was placed and impacted per magician helper recommendations. Final components appeared very well balanced with excellent range of motion. The wound was copiously irrigated with normal saline solution. Capsule was closed watertight with #1 strata fix barbed suture. Deeper bursal layer was reapproximated with 0 Vicryl suture. Dermis was reapproximated buried interrupted 2-0 Vicryl suture. Skin was finally reapproximated tank. Patient tolerated the procedure well without apparent complication. She was safely awakened in the operative suite, transferred to her hospital bed and subsequently to PACU in stable condition. Need for skilled perinatal breastfeeding assistant: Mirta Barrientos PA-C was critical to the outcome of the case. During the course of the procedure the physician perinatal breastfeeding assistant played a vital role. Her intimate knowledge of my steps in the procedure aided in safe and expedient completion of the procedure. The PA played a vital role in positioning particularly in obtaining the appropriate positioning. The PA was also vital in the retraction of soft tissues during the exposure and projecting vital structures. The PA was also vital and protecting soft tissues during times of bony cuts. She also played a vital role in closure with my direct supervision. The PA was also important during reduction and dislocation of the joint and trials intraoperatively. Post Operative Plan: Anticipate same-day discharge after meeting same-day surgery criteria. Will mobilize the patient with therapy and same-day surgery prior to discharge to ensure safe discharge. Weightbearing: Range of motion and weightbearing as tolerated right lower extremity. Antibiotics: 1 g Ancef prior to discharge DVT Prophylaxis: 2 weeks Eliquis beginning on postoperative day #1, 4 weeks aspirin twice daily 81 mg to follow Causey: None Dressing: Maintain silver dressing x 5days X-Rays: 2-week x-rays in the office. Follow-up: 2 weeks in office for staple removal
--- NOTE | 2023-12-06 10:06 | POSTOPAN2_ITS ---
Anesthesia Postop Eval I Sum Postop Eval Completion status Anesthesia document: Postop Eval 1 completed: Yes Anesthesia Postop Eval I Summary Anesthesia Postop Eval I Summary: Anesthesia Postop Eval I: Assessment Summary Airway patent Yes 12/06/23 09:29 [email or web address] Spontaneous unlabored Yes 12/06/23 09:29 [email or web address] respirations Mental status Awake,Calm 12/06/23 09:29 [email or web address] nausea No 12/06/23 09:29 [email or web address] Vomiting No 12/06/23 09:29 [email or web address] Anesthesia Postop Eval I: Fluid Summary Crystalloid volume administer 1,000 12/06/23 09:29 [email or web address] (ml) Colloids volume administered ( ml) Blood Product volume administered (ml) Total IV fluid infused 1,000 12/06/23 09:29 [email or web address] Anesthesia Postop Eval I: Summary Notes Anesthesia Complication No 12/06/23 09:29 [email or web address] Anesthesia Complication Comment: Post-operative progress note Anesthesia: Postop Eval II Evaluation Mental status: Awake Pain Level: 0 nausea: No Vomiting: No
--- NOTE | 2023-12-06 10:06 | PCM.POSTANE2 ---
Anesthesia Postop Eval I Sum Postop Eval Completion status Anesthesia document: Postop Eval 1 completed: Yes Anesthesia Postop Eval I Summary Anesthesia Postop Eval I Summary: Anesthesia Postop Eval I: Assessment Summary Airway patent Yes 12/06/23 09:29 INSTRUCTIONAL SUPPORT [email or web address] Spontaneous unlabored Yes 12/06/23 09:29 INSTRUCTIONAL SUPPORT [email or web address] respirations Mental status Awake,Calm 12/06/23 09:29 INSTRUCTIONAL SUPPORT [email or web address].[email or web address] nausea No 12/06/23 09:29 INSTRUCTIONAL SUPPORT [email or web address].[email or web address] Vomiting No 12/06/23 09:29 INSTRUCTIONAL SUPPORT [email or web address].[email or web address] Anesthesia Postop Eval I: Fluid Summary Crystalloid volume administer 1,000 12/06/23 09:29 INSTRUCTIONAL SUPPORT [email or web address].[email or web address] (ml) Colloids volume administered ( ml) Blood Product volume administered (ml) Total IV fluid infused 1,000 12/06/23 09:29 INSTRUCTIONAL SUPPORT ASSISTANT.[email or web address] Anesthesia Postop Eval I: Summary Notes Anesthesia Complication No 12/06/23 09:29 INSTRUCTIONAL SUPPORT [email or web address].[email or web address] Anesthesia Complication Comment: Post-operative progress note Anesthesia: Postop Eval II Evaluation Mental status: Awake Pain Level: 0 nausea: No Vomiting: No
[2023-12-06] MEDS: Lactated Ringers 1,000 ML 125 ML IV (10:35)
[2023-12-06] MEDS: Cefazolin 1 GM/50 ML BAG IV (10:45)
== END 2023-12-06 13:12 | disposition home or self-care (01) ==
LOC: SDC 05:34 → AC 05:34
PROVIDERS: Anesthesiology; PCP Internal Medicine; Referring Provider Student in an Organized Health Care Education/Training Program; Visit Provider Student in an Organized Health Care Education/Training Program
PROC: 0SRC0JZ Replacement of Right Knee Joint with Synthetic Substitute, Open Approach (ICD-10-PCS; CPT 27447; principal; 2023-12-06 07:00)
DX: M17.11 Unilateral primary osteoarthritis, right knee (principal); M21.161 Varus deformity, not elsewhere classified, right knee; K21.9 Gastro-esophageal reflux disease without esophagitis; I10 Essential (primary) hypertension; Z96.652 Presence of left artificial knee joint; Z79.899 Other long term (current) drug therapy
CPT/HCPCS: 27447; S2900; 64450; 01402; 36415; 80048; 82962; 83735; 85025; 87081; 88305; 88311; 93005; 97162; C1776; J7120; J2405; J3475

== ENCOUNTER → 2024-08-02 | Outpatient (CLI) | payer MEDICARE, OTHER, SELFPAY ==
[2024-08-02 12:53] LABS: Absolute Lymphocyte Count 1.52 X10^3/uL (0.83-4.51); Absolute Neutrophil Count 5.3 X10^3/uL (2.0-7.7); Basophil# 0.09 X10^3/uL; Basophil% 1.2 % (0-1); Eosinophils% 2.6 % (0-5); Hematocrit 45.4 % (37-47); Hemoglobin 14.9 g/dL (12.0-15.0); Lymphocyte # 1.52 X10^3/ul (0.83-4.51); Lymphocyte % 19.7 % (19-41); Mean Corp Hgb Conc 32.8 g/dL (32-36); Mean Corpuscular Hgb 29.5 pg (27.0-32.0); Mean Corpuscular Volume 89.9 fL (81-99); Mean Platelet Vol. 9.6 fl (6.2-12.0); Monocyte# 0.55 X10^3/uL; Monocyte% 7.1 % (0-10); NRBC Flagged by Analyzer 0 % (0-5); Neutrophil # 5.34 X10^3/uL (2.7-7.7); Neutrophil % 69.1 % (47-70); Platelet Count 315 K/mm3 (150-450); RBC Distribution Width CV 14.2 % (11.6-14.6); RBC Distribution Width SD 46.4 fl (35.1-43.9); Red Blood Count 5.05 M/mm3 (4.2-5.4); White Blood Count 7.7 K/mm3 (4.4-11.0)
[2024-08-02 14:04] LABS: ALB/GLOB Ratio 1.1 RATIO (0.9-2.4); AST(SGOT) 18 U/L (<=31); Alanine Aminotransfer ALT/SGPT 11 U/L (<=34); Albumin, Serum 4.1 g/dL (3.4-4.8); Alkaline Phosphatase 81 U/L (35-104); Anion Gap 10 (5-15); BUN 9 mg/dL (4-19); BUN/Creat Ratio 11.3 RATIO (10-20); Calcium,Total 9.4 mg/dL (7.6-11.0); Carbon Dioxide 25.7 mmol/L (21.0-32.0); Chloride 104 mmol/L (98-108); Cholesterol 237 mg/dL (<=200); Creatinine, Serum 0.75 mg/dL (0.70-1.20); EST Glomerular Filtration Rate 79 (>60); Globulin 3.6 g/dL (2.2-4.2); Glucose 90 mg/dL (70-99); High Density Lipoprotein 48 mg/dL; Low Density Lipoprotein Calc. 155 mg/dL; Potassium 4.8 mmol/L (3.3-5.1); Protein, Total 7.6 g/dL (5.9-8.4); Sodium Level 140 mmol/L (133-145); Total Bilirubin 0.34 mg/dL (0.00-1.30); Triglycerides 172 mg/dL; Very Low Density Lipoprotein 34 mg/dL (5-40); cholesterol:hdl ratio screen 4.97
== END | disposition home or self-care (01) ==
LOC: BIMLAB 11:00
PROVIDERS: PCP Internal Medicine; Referring Provider Internal Medicine; Visit Provider Internal Medicine
DX: E78.5 Hyperlipidemia, unspecified (principal); E03.9 Hypothyroidism, unspecified
CPT/HCPCS: 36415; 80053; 80061; 84443; 85025